=== PATIENT | male | born 1950 | race Caucasian/White ===

== ENCOUNTER 2017-06-10 05:54 | Emergency (ER) | payer OTHER ==
--- NOTE | 2017-06-10 05:57 | PDOC ---
History of Present Illness - General Chief Complaint: Lightheaded Stated Complaint: DIZZY Time Seen by Provider: 06/10/17 05:56 - History of Present Illness Initial Comments: 06/10/17 06:34 This 66-year-old man without significant past medical history presents with a few day history of progressive vertigo. Patient states that symptoms began a few days ago when he felt lightheaded and spinning sensation when he arose from supine position to sitting up (e.g. when he got out of bed in the morning). Symptoms resolved spontaneously after several minutes initially and he had no further episodes during the day. Yesterday, he found that he was having spinning sensation during the evening, accompanied by queasy feeling (no vomiting). He was able to sleep overnight but upon getting out of bed this morning, lightheadedness/spinning were severe and patient realized he could not go to work. He is nauseated now but has not vomited. No previous history of these symptoms. He denies recent headache or head trauma. There has been no other neuro symptoms: He specifically denies difficulty with vision/speech/swallowing; there has been no extremity weakness or balance problems Patient states that other than "perfunctory" physical exams every 2 years for his driving license, he has not seen a doctor "in years" He states he had left-sided total hip replacement several years ago which went well and also has a history of mild prostatic hypertrophy (not treated) Positive smoking history until approximately one month ago (2 packs/week) Social alcohol use only; no other drugs Patient is a retired teacher;works as yoga instructor Past History - Past Medical History Allergies/Adverse Reactions: Allergies Allergy/AdvReac Type Severity Reaction Status Date / Time No Known Allergies Allergy Unverified 06/10/17 06:22 Home Medications: Ambulatory Orders Meclizine HCl 25 mg PO TID PRN #30 tab.chew 06/10/17 Meclizine HCl [Antivert -] 25 mg PO TID PRN #30 tablet 06/10/17 Review of Systems - Review of Systems Able to Perform ROS?: Yes Comments:: 12 point review of systems is negative except for what is noted in the history of present illness *Physical Exam - Physical Exam Comments: GENERAL: Adult male, alert and oriented 3, in no acute distress; vertigo reproduced with sitting up from lying position; no symptoms with change in head position Vital signs heart rate 79/minute, BP 142/98, pulse ox 96% on room air HEAD: Normal with no signs of trauma. EYES: PERRLA, EOMI, sclera anicteric, conjunctiva clear. No abnormal nystagmus ENT: Ears normal, nares patent, oropharynx clear without exudates. Moist mucous membranes. NECK: Normal range of motion, supple without lymphadenopathy, JVD, or masses. LUNGS: Breath sounds equal, clear to auscultation bilaterally. No wheezes, and no crackles. HEART:Regular rate and rhythm, normal S1 and S2 without murmur, rub or gallop. ABDOMEN:.normal bowel sounds No guarding,tenderness or rebound.No masses No distention. EXTREMITIES: Normal range of motion, no edema. No clubbing or cyanosis. No erythema, or tenderness. NEUROLOGICAL: Cranial nerves II through XII grossly intact. Normal speech. No focal neurological deficits. MUSCULOSKELETAL: Back non-tender to palpation, no CVA tenderness SKIN: Warm, Dry, normal turgor, no rashes or lesions noted. ED Treatment Course - LABORATORY CBC & Chemistry Diagram: 06/10/17 06:45 06/10/17 06:45 Medical Decision Making - Medical Decision Making 06/10/17 06:42 66-year-old man with no significant past medical history presents with first episode of positional vertigo. No recent acute illness and exam as noted above unremarkable except for reproduction of vertigo with sitting up from a supine or semi-supine position. 12-lead electrocardiogram performed and interpreted by me. Normal sinus rhythm at 68 bpm axis, interval and wave forms are all normal. No evidence of acute ST or T-wave abnormalities Patient was given meclizine 50 mg by mouth. He tolerated this well without vomiting. Because this is the first episode of vertigo and has not had a thorough physical exam in several years, CBC/chemistry profile/cardiac enzymes will be evaluated. Also, noncontrast head CT will be ordered to evaluate for acute intracranial pathology Care of this patient signed out to incoming physician at change of shift. *DC/Admit/Observation/Transfer Diagnosis at time of Disposition: Vertigo - Discharge Dispostion Disposition: HOME Condition at time of disposition: Good - Prescriptions Prescriptions: Meclizine HCl [Antivert -] 25 mg PO TID PRN #30 tablet PRN Reason: Vertigo Meclizine HCl 25 mg PO TID PRN #30 tab.chew PRN Reason: Vertigo - Referrals Referrals: Gage Murrell MD [Staff Physician] - Jerri Mazariegos MD [Staff Physician] - Gold Cook MD [Staff Physician] - - Patient Instructions Printed Discharge Instructions: DI for Vertigo Additional Instructions: Follow up with ENT and neurology clinic for further evaluation of your vertigo. Call the numbers provided to make appointments with our clinics. There were some slight abnormalities with your echocardiogram (ultrasound of your heart). You must follow up with a account director for further evaluation to prevent severe heart disease or heart failure. If you experience worsening dizziness, headaches, vomiting, or any other concerning symptoms, return to the ER immediately.
[2017-06-10 06:00] VITALS: TEMP 97.6; BMI 30.2
[2017-06-10] MEDS ORDERED: MECLIZINE HCL 25 MG TABLET (FP) PO ONE (06:18)
[2017-06-10 07:26] LABS: INR 0.96 (0.82-1.09); PROTHROMBIN TIME (PATIENT) 10.8 SEC (10.2-13.0)
[2017-06-10 07:31] LABS: ALBUMIN 3.9 g/dl (3.5-5.0); ALK PHOS 49 U/L (32-92); ANION GAP 4 (8-16); BILIRUBIN,TOTAL 0.9 mg/dl (0.2-1.0); CALCIUM 9.2 mg/dl (8.4-10.2); CO2 28 mmol/L (22-28); CPK 107 IU/L (39-308); CREATININE 1.1 mg/dl (0.6-1.3); GLUCOSE,RANDOM 134 mg/dl (74-106); SGOT/AST 17 U/L (10-42); SGPT/ALT 14 U/L (10-40); TOT PROT 6.3 g/dl (6.4-8.3)
[2017-06-10 07:35] LABS: BASOPHIL 0.1 % (0-2.0); EOSINOPHIL 0.7 % (0-4.5); MCH 30.3 pg (25.7-33.7); MCHC 33.8 g/dl (32.0-35.9); MEAN CELL VOLUME 89.9 fl (80-96); MEAN PLT VOLUME 8.9 fl (7.5-11.1); NEUTROPHILS 77.5 % (42.8-82.8); PLATELET COUNT 212 K/MM3 (134-434); RDW 13.2 % (11.9-15.9); WHITE BLOOD COUNT 7.7 K/mm3 (4.0-10.8)
[2017-06-10 08:07] LABS: TROPONIN I (DFP) < 0.03 ng/ml (0.03-0.50)
--- NOTE | 2017-06-10 09:51 | PDOC ---
*Physical Exam - Vital Signs Last Vital Signs Temp Pulse Resp BP Pulse Ox 97.6 F 80 18 150/82 97 06/10/17 05:55 06/10/17 08:53 06/10/17 08:53 06/10/17 08:53 06/10/17 08:53 ED Treatment Course - LABORATORY CBC & Chemistry Diagram: 06/10/17 06:45 06/10/17 06:45 - ADDITIONAL ORDERS Additional order review: Laboratory Results 06/10/17 06/10/17 06:45 06:45 PT with INR 10.8 INR 0.96 L Sodium 140 Potassium 4.2 Chloride 108 H Carbon Dioxide 28 Anion Gap 4 L BUN 22 H Creatinine 1.1 Creat Clearance w eGFR > 60 Random Glucose 134 H Calcium 9.2 Total Bilirubin 0.9 AST 17 ALT 14 Alkaline Phosphatase 49 Creatine Kinase 107 Troponin I < 0.03 L Total Protein 6.3 L Albumin 3.9 06/10/17 06:45 RBC 5.15 MCV 89.9 MCHC 33.8 RDW 13.2 MPV 8.9 Neutrophils % 77.5 Lymphocytes % 15.8 Monocytes % 5.9 Eosinophils % 0.7 Basophils % 0.1 - RADIOLOGY Radiology Studies Ordered: Category Date Time Status BRAIN MRA W/O CONTRAST [MRI] Stat MRI 06/10/17 09:44 Ordered BRAIN MRI W/O CONTRAST [MRI] Stat MRI 06/10/17 09:44 Ordered NECK MRA W/O CONTRAST [MRI] Stat MRI 06/10/17 09:44 Ordered CAROTID COLOR FLOW DOPP US [US] Stat Ultrasound 06/10/17 08:48 Ordered - Medications Given in the ED: ED Medications Discontinued Medications Generic Name Dose Route Start Last Admin Trade Name Freq PRN Reason Stop Dose Admin Meclizine HCl 50 mg 06/10/17 06:18 06/10/17 06:22 Antivert - PO 06/10/17 06:19 50 mg ONCE ONE Administration Medical Decision Making - Medical Decision Making 06/10/17 09:48 66 M with no known PMH presenting with 3 days of progressively worsening vertigo. Labs unremarkable. CTH shows 3.1x3.8 cm retrocerebellar arachnoid cyst with mild flattening of posterior cerebellar convexities. No midline shift or herniation. Spoke with Dr. Joey Toth, neurosurgeon business solutions consultant, who reviewed imaging results and pt history with me. He does not believe that the cyst is the cause of pt's vertigo and does not see any indication for neurosurgical intervention at this time. Page sent out to neurologist business solutions consultant. Awaiting callback. 06/10/17 10:[address] Gage Murrell, neurologist business solutions consultant, who states his suspicion for stroke is low but agrees with stroke work up, including MRI. 06/10/17 11:46 Pt unable to tolerate MRI due to claustrophobia. I offered to pretreat pt with ativan or other sedative, but pt continues to refuse. Carotid dopplers and echo obtained. Pt to be admitted for further evaluation for stroke and neuro consultation. 06/10/17 14:54 Pt now refusing admission. After discussion of importance of stroke work up given his symptoms, pt consented to obtaining MRI with sedation. MRI/MRA negative for acute stroke. Pt at this time reports no dizziness. Is ambulatory with stable gait. Pt's symptoms at this time seem most consistent with peripheral vertigo. No indication for admission to hospital. Pt stable for DC with ENT and neuro f/u. *DC/Admit/Observation/Transfer Diagnosis at time of Disposition: Vertigo - Discharge Dispostion Disposition: HOME Condition at time of disposition: Good Admit: No - Prescriptions Prescriptions: Meclizine HCl [Antivert -] 25 mg PO TID PRN #30 tablet PRN Reason: Vertigo Meclizine HCl 25 mg PO TID PRN #30 tab.chew PRN Reason: Vertigo - Referrals Referrals: Gage Murrell MD [Staff Physician] - Gold Cook MD [Staff Physician] - Jerri Mazariegos MD [Staff Physician] - - Patient Instructions Printed Discharge Instructions: DI for Vertigo Additional Instructions: Follow up with ENT and neurology clinic for further evaluation of your vertigo. Call the numbers provided to make appointments with our clinics. There were some slight abnormalities with your echocardiogram (ultrasound of your heart). You must follow up with a inward toll operator for further evaluation to prevent severe heart disease or heart failure. If you experience worsening dizziness, headaches, vomiting, or any other concerning symptoms, return to the ER immediately. - Attestations Physician Attestion: 06/10/17 11:48 I, Dr. Carlos Burden MD, attest that this document has been prepared under my direction and personally reviewed by me in its entirety. I further attest, that it accurately reflects all work, treatment, procedures and medical decision -making performed by me.
--- NOTE | 2017-06-10 10:41 | EKG ---
Test Reason : Blood Pressure : / mmHG Vent. Rate : 068 BPM Atrial Rate : 068 BPM P-R Int : 168 ms QRS Dur : 086 ms QT Int : 418 ms P-R-T Axes : 087 038 051 degrees QTc Int : 444 ms NORMAL SINUS RHYTHM Confirmed by PATI HA MD ([id number]) on 06/10/2017 10:41:01 AM Referred By: DR GAYTAN Confirmed By:PATI HA MD
[2017-06-10] MEDS ORDERED: diazePAM CARPU-JECT 10 MG/2 ML DISP.SYRIN IVPUSH ONE (11:58)
[2017-06-10] MEDS ORDERED: diazePAM CARPU-JECT 10 MG/2 ML DISP.SYRIN ONE (12:11)
--- NOTE | 2017-06-10 14:31 | HOSP ---
Subjective - Review of Symptoms Neurological: Yes: Other (vertigo) Physical Examination Vital Signs: Vital Signs Temperature 97.6 F 06/10/17 05:55 Pulse Rate 75 06/10/17 12:20 Respiratory Rate 18 06/10/17 12:20 Blood Pressure 131/72 06/10/17 12:20 O2 Sat by Pulse Oximetry (%) 97 06/10/17 12:20 Constitutional: Yes: Well Nourished, No Distress, Calm Eyes: Yes: WNL, Conjunctiva Clear, EOM Intact HENT: Yes: WNL, Atraumatic, Normocephalic Neck: Yes: WNL, Supple, Trachea Midline Cardiovascular: Yes: WNL, Regular Rate and Rhythm, S1, S2 Respiratory: Yes: WNL, Regular, CTA Bilaterally Gastrointestinal: Yes: WNL, Normal Bowel Sounds, Soft ...Rectal Exam: Yes: Deferred Renal/: Yes: WNL Breast(s): Yes: WNL Musculoskeletal: Yes: WNL Extremities: Yes: WNL Edema: No Peripheral Pulses WNL: Yes Peripheral Pulses: Left Radial: 4+, Right Radial: 4+, Left Doralis Pedis: 3+, Right Dorsalis Pedis: 3+, Left Femoral: 3+, Right Femoral: 3+ Neurological: Yes: WNL, Alert, Oriented ...Motor Strength: WNL Psychiatric: Yes: WNL, Alert, Oriented Labs: CBC, BMP 06/10/17 06:45 06/10/17 06:45 Hospitalist Encounter Assessment: evaluated patient for observation admission, at bedside patient declines observation admission, is requesting MRI/MRA of brain and neck , patient is requesting he rather wait for the results of MRI/MRA to decide if he will need to stay in the hospital. Patient's is at bedside and is agreement. Dr Burden, ED attending made aware of patient's decision.
[2017-06-10 15:04] VITALS: BP 130/70; PULSE 74
== END 2017-06-10 15:22 | disposition home or self-care (01) ==
LOC: FER 05:54
PROC: 3E033NZ Introduction of Analgesics, Hypnotics, Sedatives into Peripheral Vein, Percutaneous Approach (ICD-10-PCS; principal; 2017-06-10)
DX: R42 Dizziness and giddiness (principal)
CPT/HCPCS: 36415; 70450-TC; 70544-TC; 70547-TC; 70551-TC; 80053; 84484; 85025; 85610; 93005; 93306-TC; 93880-TC; 99284-25